=== PATIENT | female | born 1975 | race Caucasian/White ===

== ENCOUNTER 2017-12-27 16:43 | Emergency (ER) | payer MEDICAID ==
[2017-12-27] MEDS ORDERED: BENOXINATE HCL/FLUORESCEIN SOD 5 ML OPHTH LEFT EYE (17:29)
[2017-12-27] MEDS: FLUORESCEIN STRIP LEFT EYE (17:46)
[2017-12-27] MEDS: TETRACAINE 0.5% 4 ML OPH LEFT EYE (17:47)
== END 2017-12-27 18:56 | disposition home or self-care (01) ==
LOC: FTE 16:43
DX: S05.92XA Unspecified injury of left eye and orbit, initial encounter (principal); I10 Essential (primary) hypertension; W20.8XXA Other cause of strike by thrown, projected or falling object, initial encounter; Y92.9 Unspecified place or not applicable; Z85.3 Personal history of malignant neoplasm of breast
CPT/HCPCS: 76536; 99284-25